=== PATIENT | male | born 1985 | race Asian ===

== ENCOUNTER 2018-03-01 16:14 | Emergency (ER) | payer OTHER ==
--- NOTE | 2018-03-01 17:24 | UC ---
Skin Complaint HPI - HPI Summary HPI Summary: Patient comes to the urgent care today with chief complaint of itchy rash on the inside of his right arm in the antecubital fossa of his right and his left arm discrete small papular rash without a red base. Does not have any other constitutional symptoms no illness exposure no recent gym exposure no recent hot tub exposures. - History of Current Complaint Chief Complaint: UCRash Time Seen by Provider: 03/01/18 17:08 Stated Complaint: RASH ON ARMS Hx Obtained From: Patient Onset/Duration: Sudden Onset, Lasting Weeks - 1, Still Present Timing: Constant Onset Severity: Mild Current Severity: Mild Pain Intensity: 0 Pain Scale Used: 0-10 Numeric Location: Discrete - right and left antecubital fossa inner right upper arm Character: Pruritus Aggravating Factor(s): Nothing Alleviating Factor(s): Treatment [employer]: - Has been using [id number] hydrocortisone cream which helps control the itching Associated Signs & Symptoms: Positive: Rash - Allergy/Home Medications Allergies/Adverse Reactions: Allergies Allergy/AdvReac Type Severity Reaction Status Date / Time No Known Allergies Allergy Verified 03/01/18 17:05 Review of Systems Constitutional: Negative Skin: Rash - Itchy pruritic rash as described Eyes: Negative ENT: Negative Respiratory: Negative Cardiovascular: Negative Gastrointestinal: Negative Genitourinary: Negative Motor: Negative Neurovascular: Negative Musculoskeletal: Negative Neurological: Negative Psychological: Negative Is Patient Immunocompromised?: No All Other Systems Reviewed And Are Negative: Yes PMH/Surg Hx/FS Hx/Imm Hx Previously Healthy: Yes - Surgical History Surgical History: None - Family History Known Family History: Positive: None - Social History Occupation: Employed Full-time Lives: With Family Alcohol Use: Occasionally Substance Use Type: None Smoking Status (MU): Never Smoked Tobacco Physical Exam Triage Information Reviewed: Yes Appearance: Well-Appearing, No Pain Distress, Well-Nourished Vital Signs: Initial Vital Signs Temp 97.9 F 03/01/18 17:02 Pulse 74 03/01/18 17:02 Resp 18 03/01/18 17:02 BP 144/104 03/01/18 17:02 Pulse Ox 98 03/01/18 17:02 Vital Signs Reviewed: Yes Eye Exam: Normal Eyes: Positive: Conjunctiva Clear ENT Exam: Normal ENT: Positive: Normal ENT inspection, Hearing grossly normal. Negative: Nasal congestion, Trismus, Muffled voice, Hoarse voice Dental Exam: Normal Neck exam: Normal Neck: Positive: Supple, Nontender Respiratory Exam: Normal Respiratory: Positive: Normal breath sounds, No respiratory distress Cardiovascular Exam: Normal Cardiovascular: Positive: Pulses Normal, Brisk Capillary Refill Musculoskeletal Exam: Normal Musculoskeletal: Positive: Strength Intact, ROM Intact, No Edema Neurological Exam: Normal Neurological: Positive: Alert Psychological Exam: Normal Skin Exam: Other Skin: Positive: Other - Pruritic rash as described right left antecubital right inner upper arm Course/Dx - Course Course Of Treatment: Patient leaves Zyrtec and Pepcid during the day as well as hydrocortisone cream topically at night patient can take Benadryl for the itch and continue to apply hydrocortisone cream cool showers follow with dermatology if fail to improve or worsens - Diagnoses Provider Diagnoses: Pruritic rash right and left arm, elevated blood pressure without diagnosis of hypertension Discharge - Sign-Out/Discharge Documenting (check all that apply): Discharge - Discharge Plan Condition: Stable Disposition: HOME Prescriptions: Famotidine TAB 40 MG(NF) [Pepcid TAB 40 MG(NF)] 40 mg PO DAILY #7 tab Patient Education Materials: Contact Dermatitis (ED) Referrals: Gabe Junior MD [Medical Doctor] - 1 Week Hilda SAMANIEGO,Cruz Godoy [Primary Care Provider] - 2 Weeks Additional Instructions: During the daytime in the morning you can take Pepcid and Zyrtec at nighttime you can use Benadryl for itch. Continue with hydrocortisone cream twice a day if no improvement or worsens at any time follow-up with dermatology. Your blood pressure was a little bit high today please get that rechecked with your primary care doctor in the next 1-2 weeks - Billing Disposition and Condition Condition: STABLE Disposition: HOME
[2018-03-01 17:48] VITALS: BP 158/89
== END 2018-03-01 17:45 | disposition home or self-care (01) ==
LOC: UCEAST 16:14
DX: R21 Rash and other nonspecific skin eruption (principal); R03.0 Elevated blood-pressure reading, without diagnosis of hypertension
CPT/HCPCS: 99212; G0463

== ENCOUNTER 2019-09-08 12:26 | Emergency (ER) | payer OTHER ==
--- OUTSIDE RECORDS SUMMARY | 2019-09-08 12:34 | XMS REPORT | Continuity of Care Document ---
:1985 External Reference #:[id number] Author Name Cruz Stevens MD Address [address] [place] [id number] Problems Description No Active Problems Social History Type Date Description Comments Sex Unknown Tobacco Use Start: Unknown Patient has never smoked Smoking Status Reviewed: 07/23/19 Patient has never smoked Allergies, Adverse Reactions, Alerts Active Allergies Reaction Severity Comments Date Bee Stings 08/22/2001 Medications Active Medications SIG Qnty Indications Ordering Provider Date Omeprazole 1 po qd 30caps 530.81 Hilda, 08/22/2011 20mg MD Cruz Capsules DR Garcia use as directed 1units Hilda, 05/26/2008 1:1000 Device for allergic MD Cruz reaction Albuterol HFA Inhaler 2 puffs qid prn 1units 493.10 Hilda, 02/27/2006 MD Cruz Inhaler Medications Administered in Office Medication SIG Qnty Indications Ordering Provider Date PPD Cruz Stevens MD 07/05/2007 Injection PPD Nurses Schedule Loc 4 07/05/2007 Injection Immunizations CPT Code Status Date Vaccine Lot # [id number] Given 09/02/2010 Afluria Or Fluvirin Flu Vac Intramuscular [id number] Given 10/16/2008 Afluria Or Fluvirin Flu Vac Intramuscular [id number] 78175 Given 10/16/2007 Afluria Or Fluvirin Flu Vac Intramuscular 96780 Given 10/16/2007 Afluria Or Fluvirin Flu Vac Intramuscular [id number] 39231 Given 07/05/2007 Tdap (Adacel) Ages 7 And Above Only [id number] 85915 Given 07/05/2007 Tdap (Adacel) Ages 7 And Above Only 11054 Given 07/05/2007 Menactra/Menveo Meningococcal Vaccine [id number] 97234 Given 07/05/2007 Menactra/Menveo Meningococcal Vaccine 89544 Given 07/05/2007 Hepatitis B Vaccine Adult Dosage [id number] 17292 Given 07/05/2007 Hepatitis B Vaccine Adult Dosage 91794 Given 10/17/2006 Afluria Or Fluvirin Flu Vac Intramuscular [id number] 12869 Given 10/17/2006 Afluria Or Fluvirin Flu Vac Intramuscular 02604 Given 10/08/2003 Afluria Or Fluvirin Flu Vac Intramuscular 28172 Given 10/08/2003 Afluria Or Fluvirin Flu Vac Intramuscular 31138 Given 10/09/2002 Afluria Or Fluvirin Flu Vac Intramuscular 88732 Given 05/22/2000 Hepatitis B Vac Ped/Adolescent 3 Dose Schedule 52758 Given 06/21/1999 Hepatitis 1999 Age 11-19 Vital Signs Date Vital Result Comment 07/23/2019 10:44am Weight 192.00 lb BP Systolic 130 mmHg BP Diastolic 82 mmHg Height 69.75 inches 5'9.75" BMI (Body Mass Index) 27.7 kg/m2 11/29/2015 3:28pm Weight 208.00 lb BP Systolic 116 mmHg BP Diastolic 82 mmHg Height 69.75 inches 5'9.75" BMI (Body Mass Index) 30.1 kg/m2 Results Description No Information Available Procedures Description No Information Available Medical Devices Description No Information Available Encounters Description No Information Available Assessments Date Code Description Provider 07/23/2019 R42 Dizziness and giddiness Cruz Stevens MD 07/23/2019 Z68.27 Body mass index (BMI) 27.0-27.9, adult Cruz Stevens MD Plan of Treatment 07/23/2019 - Cruz Stevens, MDR42 Dizziness and giddinessComments:Advised that this is likely a viral etiology and is benignAdvised to be carefu when changing position and to notify office if worsening or is having changes in [id number] Body mass index (BMI) 27.0-27.9, adult Functional Status Description No Information Available Mental Status Description No Information Available Referrals Description No Information Available
--- NOTE | 2019-09-08 12:39 | UC ---
Throat Pain/Nasal Sanket HPI - HPI Summary HPI Summary: 34 y/o male presents to the urgent care c/o Sinus congestion and pressure, w/ yellowish drainage sine 09/03/2019. Pt reports B/L ear pain and pressure for the past 2 days. Pain is 4/10 associated w/ dry cough and MONTEJO. He has taken Advil/sudafed and Dayquill to alleviate symptoms. Pt denies fever, dizziness, SOB, chest pain, abdominal pain, N/V/d. - History of Current Complaint Stated Complaint: SINUS ISSUE Time Seen by Provider: 09/08/19 12:37 Hx Obtained From: Patient Onset/Duration: Gradual Onset, Lasting Days - 5 days, Still Present, Worse Since - yesterday w/ B/L ear pain and pressure Severity: Moderate Pain Intensity: 4 - B/l ear pain and sinus pain Pain Scale Used: 0-10 Numeric Cough: Nonproductive Associated Signs & Symptoms: Positive: Negative, Sinus Discomfort, Nasal Discharge - yellowish, Other - B/L ear pain and pressure. Negative: Fever - Epiglottits Risk Factors Epiglottis Risk Factors: Negative - Allergies/Home Medications Allergies/Adverse Reactions: Allergies Allergy/AdvReac Type Severity Reaction Status Date / Time No Known Allergies Allergy Verified 09/08/19 12:41 Home Medications: Home Medications Famotidine TAB 40 MG(NF) [Pepcid TAB 40 MG(NF)] 40 mg PO DAILY PRN 09/08/19 [ History Confirmed 09/08/19] Ibuprofen/Pseudoephedrine HCl [Advil Cold & Sinus Caplet] 1 tab PO DAILY PRN [History Confirmed 09/08/19] PMH/Surg Hx/FS Hx/Imm Hx Previously Healthy: Yes - Pt denies PMHX - Surgical History Surgical History: None - Family History Known Family History: Positive: None - Pt denies FMHX - Social History Occupation: Employed Full-time Alcohol Use: Occasionally Substance Use Type: None Smoking Status (MU): Never Smoked Tobacco Review of Systems All Other Systems Reviewed And Are Negative: Yes Constitutional: Positive: Negative Skin: Positive: Negative Eyes: Positive: Negative ENT: Positive: Sore Throat, Ear Ache - B/L ear pain and pressure, Nasal Discharge - yellowish, Sinus Congestion, Sinus Pain/Tenderness, Other - Moderate PND Respiratory: Positive: Cough - dry Cardiovascular: Positive: Negative Gastrointestinal: Positive: Negative Genitourinary: Positive: Negative Motor: Positive: Negative Neurovascular: Positive: Negative Musculoskeletal: Positive: Negative Neurological: Positive: Negative Psychological: Positive: Negative Is Patient Immunocompromised?: No Physical Exam - Summary Physical Exam Summary: Vitals: reviewed General: Well developed, well-nourished male patient with NAD. Head and face: Normocephalic and atraumatic, Positive tenderness over the frontal and maxillary sinuses.. Eyes: PERRLA, EOMI x 2. Normal conjunctiva. No eye discharge. ENT: B/L external external ear canal clear, RT TM bulging and injected w/ erythema, no drainage or perforation, LF TM WNL. Nose: edematous and erythematous nasal mucosa with with yellowish discharge and erythematous mucosa. Pharynx with erythema, no exudate. Neck: Supple, no JVD, no carotid bruits and no lymphadenopathy. Lungs: clear, no rales, no rhonchi, no wheezes. CVS: RRR, S1 and S2 present no murmurs or gallops appreciated. Abdomen: soft nontender with positive bowel sounds. Extremities: no edema noted. Neuro: WNL. Skin: warm and dry Triage Information Reviewed: Yes Throat Pain/Nasal Course/Dx - Course Course Of Treatment: 34 y/o male presents to the urgent care c/o Sinus congestion and pressure, w/ yellowish drainage sine 09/03/2019. Pt reports B/L ear pain and pressure for the past 2 days. Pain is 4/10 associated w/ dry cough and MONTEJO. He has taken Advil/sudafed and Dayquill to alleviate symptoms. Pt denies fever, dizziness, SOB, chest pain, abdominal pain, N/V/d. Hx obtained. Pt w/ Rt otitis Media and acute sinusitis on examination. Pt Rx Amoxicillin PO and flonase nasal spray. Advised to try symptomatic treatment first and if symptoms worsen to start antibiotic.Pt's BP is elevated today advised to decrease salt in diet, monitor BP and f/u with PCP for further management. Discharge instructions explained to Pt. Advised to Return to the clinic or PCP if symptoms do not improve.Pt understood and agreed with plan of care. - Differential Dx/Diagnosis Differential Diagnosis/HQI/PQRI: Influenza, Laryngitis, Otitis Media, Pharyngitis, Sinusitis, URI Provider Diagnosis: Acute sinusitis, Right otitis media, Elevated BP without diagnosis of hypertension Discharge ED - Sign-Out/Discharge Documenting (check all that apply): Patient Departure - D/C home All imaging exams completed and their final reports reviewed: No Studies - Discharge Plan Condition: Stable Disposition: HOME Prescriptions: Amoxicillin PO (*) [Amoxicillin 875 MG (*)] 875 mg PO BID #20 tab Fluticasone NASAL SPRAY 50MCG* [Flonase NASAL SPRAY 50MCG*] 2 spray BOTH NARES DAILY #1 btl Patient Education Materials: Sinusitis (ED), Ear Infection (ED) Referrals: Hilda SAMANIEGO,Cruz Godoy [Primary Care Provider] - 3 Days Additional Instructions: 1- Please increase fluid intake and rest. take full course of antibiotics if symptoms worsen in 2 days. Take yogurts w/ probiotics or Culturelle to protect your GI system 2-Use Flonase as directed to help drain fluid. Also buy saline drops to clear sinuses 3-Please continue taking Advil/ Sudafed PO to alleviates sinus congestion 4-Please f/u w/ your PCP in 3 days if symptoms do not improve for further management and treatment 5-Pt's BP is elevated today advised to decrease salt in diet, monitor BP and f/ u with PCP for further management. - Billing Disposition and Condition Condition: STABLE Disposition: Home
[2019-09-08 12:57] VITALS: BP 138/84
== END 2019-09-08 13:05 | disposition home or self-care (01) ==
LOC: UCEAST 12:26
DX: J01.90 Acute sinusitis, unspecified (principal); H66.91 Otitis media, unspecified, right ear; R03.0 Elevated blood-pressure reading, without diagnosis of hypertension
CPT/HCPCS: 99212; G0463